=== PATIENT | female | born 1990 | race Caucasian/White ===

== ENCOUNTER 2025-02-01 20:04 | Emergency (ER) | payer SELFPAY ==
[~2025-02-01] VITALS: Ht 154.9 cm; Wt 79.0 kg
[2025-02-01 20:45] VITALS: O2SAT 100
[2025-02-01 21:45] LABS: BASOPHILS % 0.6 % (0.0-2.0); EOSINOPHILS % 2.3 % (0.0-5.0); HEMATOCRIT. 41.8 % (36.0-48.0); HEMOGLOBIN. 14.1 g/dL (12.0-16.0); LYMPHOCYTES % 32.8 % (20.0-50.0); MEAN CORPUSCULAR HEMOGLOBIN 28.8 pg (28.0-32.0); MEAN CORPUSCULAR HGB CONC 33.7 g/dL (31.0-37.0); MEAN CORPUSCULAR VOLUME 85.6 fL (81.0-99.0); MEAN PLATELET VOLUME 7.1 fl (7.4-10.4); MONOCYTES % 5.7 % (2.0-8.0); NEUTROPHILS % 58.6 % (40.0-76.0); PLATELET 431 x1000/uL (130-400); RED BLOOD CELL COUNT 4.88 mill/uL (4.2-5.4); RED CELL DISTRIBUTION WIDTH 13.7 % (11.6-14.6); WHITE BLOOD COUNT 9.8 x1000/uL (4.5-11.0)
[2025-02-01 21:49] LABS: CHLORIDE 106 mEq/L (98-107); POTASSIUM 3.8 mEq/L (3.5-5.1); SODIUM 141 mEq/L (136-145)
[2025-02-01 21:50] LABS: CALCIUM 10.4 mg/dL (8.7-10.4); CARBON DIOXIDE 22 mEq/L (21-32)
[2025-02-01 21:55] LABS: CREATININE 0.5 mg/dL (0.6-1.0); GLUCOSE 211 mg/dL (70-105); HCG SCREEN POSITIVE; UREA NITROGEN BLOOD 8 mg/dL (9-23)
[2025-02-01 23:58] VITALS: BP 109/71; PULSE 97; RESP 18; TEMP 36.9; O2SAT 100
== END 2025-02-01 23:20 | disposition home or self-care (01) ==
LOC: ER 20:04
DX: O26.891 Other specified pregnancy related conditions, first trimester (principal); O36.4XX0 Maternal care for intrauterine death, not applicable or unspecified; Z3A.08 8 weeks gestation of pregnancy
CPT/HCPCS: 36415; 76801; 80048; 84702; 84703; 85025; 86850; 86900; 99284